=== PATIENT | male | born 1960 | race Caucasian/White ===

== ENCOUNTER 2024-12-18 08:24 | Outpatient (CLI) | payer MEDICARE, BC | END 2024-12-18 08:25 | disposition home or self-care (01) | LOC: SCSMRI 08:24 | PROVIDERS: ATTEND Family Medicine | DX: M51.16 Intervertebral disc disorders with radiculopathy, lumbar region (principal); M47.26 Other spondylosis with radiculopathy, lumbar region; M48.061 Spinal stenosis, lumbar region without neurogenic claudication; M51.25 Other intervertebral disc displacement, thoracolumbar region; M51.379 Other intervertebral disc degeneration, lumbosacral region without mention of lumbar back pain or lower extremity pain; M48.07 Spinal stenosis, lumbosacral region; M47.817 Spondylosis without myelopathy or radiculopathy, lumbosacral region | CPT/HCPCS: 72148 ==